=== PATIENT | male | born 1970 | race Caucasian/White ===

== ENCOUNTER 2016-10-15 17:55 | Emergency (ER) | payer OTHER ==
[2016-10-15 18:04] VITALS: BP 110/82; PULSE 77; TEMP 98.2; BMI 25.8
--- NOTE | 2016-10-15 19:42 | PDOC ---
*Physical Exam - Vital Signs Last Vital Signs Temp Pulse Resp BP Pulse Ox 98.2 F 77 18 110/82 100 10/15/16 18:00 10/15/16 18:00 10/15/16 18:00 10/15/16 18:00 10/15/16 18:00 *DC/Admit/Observation/Transfer Diagnosis at time of Disposition: Patient left after triage - Discharge Dispostion Disposition: LEFT BEFORE LAUREL GRANT
== END 2016-10-15 19:44 | disposition left against medical advice (07) ==
LOC: JERFT 17:55
DX: Z53.21 Procedure and treatment not carried out due to patient leaving prior to being seen by health care provider (principal)
CPT/HCPCS: 99281-25